=== PATIENT | male | born 1975 | race Caucasian/White ===

== ENCOUNTER → 2020-01-29 | Outpatient (CLI) | payer BC | END | disposition home or self-care (01) | LOC: LABWHC1 13:26 | PROVIDERS: ATTEND Family Medicine | DX: Z20.828 Contact with and (suspected) exposure to other viral communicable diseases (principal) | CPT/HCPCS: U0003; C9803 ==

== ENCOUNTER → 2020-09-21 | Outpatient (CLI) | payer BC ==
--- NOTE | 2020-09-21 11:33 | P.STRESS ---
- Stress Test Note Stress Test Results/Findings: Exam Performed: stress echo exercise Exam Date: 09/21/20 Reason for Exam: CP Height: 6 ft Weight: 222 kg Protocol: STRESS ECHO Stage: III Duration of Exercise: 10 Resting Heart Rate: 86 Resting Blood Pressure: 124/61 Maximum Achieved Heart Rate: 173 Maximum Achieved Blood Pressure: 181/67 85% PMHR: 99 100% PMHR: 175 METS: 11.7 Technologist Comment: Stress Test Results/Findings: Patient underwent exercise stress echo with a Venkata protocol treadmill stress test. Patient exercised into Stage 3 for a total of 10 minutes reaching a total of 11.7 METS. Patient's maximum heart rate was 173 which represented 99 % age- predicted maximum heart rate. Stress EKG portion: At baseline patient's EKG showed normal sinus rhythm, normal axis, nonspecific 0.[address] depressions in leads 23 aVF and V4 through V6. At peak exercise, EKG showed accentuation of resting ST depressions which is nonspecific secondary to baseline abnormal EKG.. Stress echo portion: 2-D echocardiogram was performed in the parasternal long, personal short, apical 2 and apical four-chamber views at rest, peak exercise and in recovery. At baseline, echocardiogram showed left ventricular ejection fraction 60% without wall motion abnormalities. With peak exercise, echocardiogram shows improvement in left ventricular ejection fraction, increase contractility, decrease in left ventricular dimension without wall motion abnormalities consistent with a normal response to exercise. Conclusions: 1. Nondiagnostic EKG portion secondary to resting EKG 2. Normal echo response to exercise without evidence of inducible ischemia. 2. Excellent exercise capacity.
== END ==
LOC: RADNMMAIN 09:54
PROVIDERS: ATTEND Family Medicine
DX: R07.89 Other chest pain (principal)
CPT/HCPCS: 93351

== ENCOUNTER → 2020-09-30 | Outpatient (CLI) | payer BC ==
--- NOTE | 2020-09-30 14:08 | XR ---
EXAMINATION TYPE: XR chest 2V DATE OF EXAM: 09/30/2020 COMPARISON: NONE TECHNIQUE: PA and lateral views submitted. HISTORY: Cough FINDINGS: The lungs are clear and there is no pneumothorax, pleural effusion, or focal pneumonia. Coarsened in terstitium. Biapical pleural thickening. IMPRESSION: 1. Correlate for chronic interstitial lung disease otherwise consider bronchitis or interstitial pneu monitis.
== END ==
LOC: RADXRMAIN 12:23
PROVIDERS: ATTEND Family Medicine
DX: J84.9 Interstitial pulmonary disease, unspecified (principal)
CPT/HCPCS: 71046